=== PATIENT | male | born 1965 | race Hispanic/Latino ===

== ENCOUNTER 2018-05-07 12:51 | Inpatient (IN) | payer OTHER ==
[2018-05-07 13:00] VITALS: BMI 21.1
--- NOTE | 2018-05-07 13:44 | ED PDOC ---
Arrival/HPI - General Historian: Patient - History of Present Illness Time/Duration: < week Symptom Onset: Sudden Symptom Course: Unchanged Quality: Other Severity Level: Mild <Bernard Bautista - Last Filed: 05/07/18 19:48> <Kishor Nunez - Last Filed: 05/08/18 14:55> - General Chief Complaint: Medical Clearance Time Seen by Provider: 05/07/18 13:18 - History of Present Illness Narrative History of Present Illness (Text): Patient is a 52 year old male with PMH of HTN and depression presenting to the ED with abusive behavior and s/p fall. Patient was sent from [facility] for abusive and violent behavior. Patient also fell 3 times in the past 3 days where he hurt his right hand and both knees. He admits to falling from his bed to the floor. He denies hitting his head or losing consciousness. Patient states that he got an xray for his right hand and it was normal. He denies fevers, chills, headaches, dizziness, shortness of breath, chest pain, abdominal pain, or urinary symptoms. He denies suicidal or homicidal ideation. PMD: Dr. Mccoy (Bernard Bautista) Past Medical History - Provider Review Nursing Documentation Reviewed: Yes - Travel History Have you recently traveled outside [place] w/in the past 3 mons?: No - Infectious Disease Hx of Infectious Diseases: MRSA - Cardiac Hx Hypertension: Yes - Pulmonary Hx Chronic Obstructive Pulmonary Disease (COPD): Yes - Neurological Hx Seizures: Yes - HEENT Hx HEENT Disorder: Yes Other/Comment: hearing loss - Renal Hx Renal Disorder: No - Endocrine/Metabolic Hx Endocrine Disorders: No - Hematological/Oncological Hx Blood Disorders: No - Integumentary Hx Dermatological Disorder: No - Musculoskeletal/Rheumatological Hx Back Pain: Yes Hx Falls: Yes Other/Comment: scoliosis,, RIGHT WRIST CLOSED FRACTURE - Gastrointestinal Other/Comment: GI BLEEDING - Genitourinary/Gynecological Hx Sexually Transmitted Diseases: No - Psychiatric Hx Depression: Yes Hx Substance Use: No - Surgical History Hx Vascular Access Device: Yes (PICC LINE RIGHT UPPER ARM) Other/Comment: Endoscopy 06/04/16. - Anesthesia Hx Anesthesia: Yes Hx Anesthesia Reactions: No - Suicidal Assessment Feels Threatened In Home Enviroment: No <Bernard Bautista - Last Filed: 05/07/18 19:48> Family/Social History - Physician Review Nursing Documentation Reviewed: Yes Family/Social History: No Known Family HX Smoking Status: Never Smoked Hx Alcohol Use: No Hx Substance Use: No <Bernard Bautista - Last Filed: 05/07/18 19:48> Allergies/Home Meds <Bernard Bautista - Last Filed: 05/07/18 19:48> <MayraKishor - Last Filed: 05/08/18 14:55> Allergies/Adverse Reactions: Allergies No Known Allergies Allergy (Verified 05/07/18 13:15) Home Medications: Home Meds Medication Instructions Recorded Confirmed ARIPiprazole [Abilify] 5 mg PO 05/07/18 Albuterol/Ipratropium [Duoneb 3 05/07/18 mg/0.5 mg (3 ml) UD] Pantoprazole Sodium [Protonix] 40 mg PO 05/07/18 diltiaZEM [Diltiazem HCl] 30 mg PO 05/07/18 levETIRAcetam [Keppra] 05/07/18 Review of Systems - Physician Review All systems were reviewed & negative as marked: Yes - Review of Systems Systems not reviewed;Unavailable: Uncooperative <Bernard Bautista - Last Filed: 05/07/18 19:48> Physical Exam Vital Signs Reviewed: Yes Temperature: Afebrile Blood Pressure: Normal Pulse: Tachycardic Respiratory Rate: Normal Appearance: Positive for: Well-Appearing, Non-Toxic, Comfortable Pain Distress: None Mental Status: Positive for: Alert and Oriented X 3, Agitated - Systems Exam Head: Present: Atraumatic, Normocephalic Pupils: Present: PERRL Extroacular Muscles: Present: EOMI Conjunctiva: Present: Normal Mouth: Present: Moist Mucous Membranes Neck: Present: Normal Range of Motion Respiratory/Chest: Present: Clear to Auscultation, Good Air Exchange. No: Respiratory Distress, Accessory Muscle Use Cardiovascular: Present: Regular Rate and Rhythm, Normal S1, S2. No: Murmurs Abdomen: No: Tenderness, Distention, Peritoneal Signs Upper Extremity: Present: Other (Right hand covered in dressing, patient refused examination of his hand). No: Normal Inspection, Cyanosis, Edema Lower Extremity: Present: Other (Abrasions and scabs appreciated on bilateral knees). No: Normal Inspection, Edema, CALF TENDERNESS Neurological: Present: GCS=15, CN II-XII Intact, Speech Normal Skin: Present: Warm, Dry, Normal Color. No: Rashes Psychiatric: Present: Alert, Oriented x 3, Agitated, Other (Verbally abusive) <Bernard Bautista - Last Filed: 05/07/18 19:48> Vital Signs Temp Pulse Resp BP Pulse Ox 05/07/18 20:26 73 17 128/76 95 05/07/18 20:21 76 128/76 05/07/18 18:32 98.0 F 98 H 18 97 05/07/18 16:50 94 H 8 L 113/65 98 05/07/18 12:59 98.3 F 114 H 18 115/64 98 Medical Decision Making Reassessment Condition: Re-examined, Unchanged <Bernard Bautista - Last Filed: 05/07/18 19:48> <Kishor Nunez - Last Filed: 05/08/18 14:55> ED Course and Treatment: Impression: Patient is a 52 year old male presenting to the ED with fall and abusive behavior. Differential Diagnosis included but are not limited to: - Substance abuse - Psychosis Plan: -- CBC -- CMP -- EKG -- TSH -- T4 -- Alcohol level -- UDS -- Acetaminophen level -- Salicylate level -- Knee xray -- PES evaluation Progress Notes: 05/07/18 16:56 - Head CT: No acute findings 05/07/18 18:29 - Alcohol, salicylate, and acetaminophen levels: negative - UDS: positive for benzodiazepines - Hg/Hct: 7.7/23.4 - Patient will be admitted. Patient is stable. (Bernard Bautista) 05/07/18 14:26 52 year old male presents to the Emergency Department for evaluation of aggressive behavior and s/p fall. In agreement with resident note, which includes further HPI details. Patient was seen and evaluated with resident, came up with plan and treatment together. (Kishor Nunez) - Lab Interpretations Lab Results: 05/07/18 16:30 05/07/18 16:30 Lab Results 05/07/18 17:13: Urine Opiates Screen Negative, Urine Methadone Screen Negative, Ur Barbiturates Screen Negative, Ur Phencyclidine Scrn Negative, Ur Amphetamines Screen Negative, U Benzodiazepines Scrn Positive H, U Oth Cocaine Metabols Negative, U Cannabinoids Screen Negative 05/07/18 16:30: Salicylates < 1 L, Acetaminophen < 10.0 L 05/07/18 16:30: Sodium 133, Potassium 4.4, Chloride 103, Carbon Dioxide 22, Anion Gap 13, BUN 12, Creatinine 0.9, Est GFR ( Amer) > 60, Est GFR (Non- Af Amer) > 60, Random Glucose 106, Calcium 8.4, Total Bilirubin 0.3, AST 34, ALT 31, Alkaline Phosphatase 86, Total Protein 6.0, Albumin 3.1, Globulin 3.0, Albumin/Globulin Ratio 1.0 L 05/07/18 16:30: WBC 4.4 L, RBC 2.65 L, Hgb 7.7 L, Hct 23.4 L, MCV 88.3, MCH 29.1 , MCHC 32.9, RDW 18.5 H, Plt Count 142, MPV 9.6, Gran % 57.2, Lymph % (Auto) 32.9, Gordon % (Auto) 5.2, Eos % (Auto) 4.5, Baso % (Auto) 0.2, Gran # 2.52, Lymph # (Auto) 1.5, Gordon # (Auto) 0.2, Eos # (Auto) 0.2, Baso # (Auto) 0.01 05/07/18 16:30: Free T4 1.07, TSH 3rd Generation 4.27, Alcohol, Quantitative < 10 - RAD Interpretation Radiology Orders: 05/07/18 13:33 KNEES BILATERAL [RAD] Stat 05/07/18 15:00 HEAD W/O CONTRAST [CT] Stat - Medication Orders Current Medication Orders: Aripiprazole (Abilify) 5 mg PO HS CHANDRAKANT Last Admin: 05/07/18 22:09 Dose: 5 mg Behavioural Document 05/07/18 22:09 NIDA (Rec: 05/07/18 22:09 NIDA [id number]) Maintenance Maintenance Dose Yes Nonmedicinal Nonmedicinal Interventions Redirect Behavior Behavior for Medication: Continuous pacing/restlessness Re-Assess: Reassess Psych Meds Document 05/07/18 23:09 NIDA (Rec: 05/07/18 23:29 [facility] Reassess Psych Med Effective Diltiazem HCl (Cardizem) 30 mg PO Q6 [facility] Last Admin: 05/08/18 12:03 Dose: Not Given Non-Admin Reason: Patient Refused Levetiracetam (Keppra 500mg Ivpb) 500 mg in 100 mls @ 460 mls/hr IV Q12 CHANDRAKANT Last Admin: 05/08/18 09:56 Dose: 460 mls/hr eMAR Start Stop Document 05/08/18 09:56 [facility] (Rec: 05/08/18 09:57 [id number]) Intravenous Solution Start Date 05/08/18 Start Time 09:57 End Date 05/08/18 End time 10:30 Total Infusion Time 33 Lorazepam (Ativan) 1 mg IVP Q6 PRN; Protocol PRN Reason: Agitation Last Admin: 05/07/18 22:12 Dose: 1 mg IVP Administration Document 05/07/18 22:12 [facility] (Rec: 05/07/18 22:12 [facility]) Charges for Administration # of IVP Administrations 1 Behavioural Document 05/07/18 22:12 [facility] (Rec: 05/07/18 22:12 [facility]) Maintenance Maintenance Dose Yes Nonmedicinal Nonmedicinal Interventions Redirect Behavior Behavior for Medication: Continuous pacing/restlessness Re-Assess: Reassess Psych Meds Document 05/07/18 22:42 [facility] (Rec: 05/07/18 23:29 [facility]) Reassess Psych Med Effective Pantoprazole Sodium (Protonix Inj) 40 mg IVP Q12 [facility] Last Admin: 05/08/18 09:57 Dose: 40 mg IVP Administration Document 05/08/18 09:57 [facility] (Rec: 05/08/18 09:57 [facility]) Charges for Administration # of IVP Administrations 1 Discontinued Medications Albuterol/Ipratropium (Duoneb 3 Mg/0.5 Mg (3 Ml) Ud) 3 ml IH [id number] CHANDRAKANT Stop: 05/08/18 03:31 Last Admin: 05/08/18 03:34 Dose: 3 ml Levetiracetam 500 mg/ Sodium (Chloride) 105 mls @ 460 mls/hr IV Q12 CHANDRAKANT <Bernard Bautista - Last Filed: 05/07/18 19:48> - PA / MICA LAYER / Resident Statement MD/DO has reviewed & agrees with the documentation as recorded. MD/DO has examined the patient and agrees with the treatment plan. - Scribe Statement The provider has reviewed the documentation as recorded by the Scribe <Kishor Nunez - Last Filed: 05/08/18 14:55> - Scribe Statement Cole Zapien. All medical record entries made by the Scribe were at my direction and personally dictated by me. I have reviewed the chart and agree that the record accurately reflects my personal performance of the history, physical exam, medical decision making, and the department course for this patient. I have also personally directed, reviewed, and agree with the discharge instructions and disposition. (Kishor Nunez) Disposition/Present on Arrival - Present on Arrival Any Indicators Present on Arrival: No History of DVT/PE: No History of Uncontrolled Diabetes: No Urinary Catheter: No History of Decub. Ulcer: No History Surgical Site Infection Following: None - Disposition Have Diagnosis and Disposition been Completed?: Yes Disposition Time: 19:48 Patient Plan: Admission, Observation <Bernard Bautista - Last Filed: 05/07/18 19:48> <Kishor Nunez - Last Filed: 05/08/18 14:55> - Disposition Diagnosis: Aggressive behavior, Fall, Anemia Disposition: HOSPITALIZED Patient Problems: Current Active Problems Problem Status Onset Aggressive behavior Acute Anemia Acute Fall Acute Condition: FAIR
--- NOTE | 2018-05-07 15:31 | CT ---
Date of service: 05/07/2018 PROCEDURE: CT HEAD WITHOUT CONTRAST. HISTORY: headache COMPARISON: None available. TECHNIQUE: Axial computed tomography images were obtained through the head/brain without intravenous contrast. Radiation dose: Total exam DLP = 978 mGy-cm. This CT exam was performed using one or more of the following dose reduction techniques: Automated exposure control, adjustment of the mA and/or kV according to patient size, and/or use of iterative reconstruction technique. FINDINGS: HEMORRHAGE: No intracranial hemorrhage. BRAIN: No mass effect or edema. Mild atrophy. Mild chronic microvascular changes. No acute findings VENTRICLES: Unremarkable. No hydrocephalus. CALVARIUM: Unremarkable. PARANASAL SINUSES: Unremarkable as visualized. No significant inflammatory changes. MASTOID AIR CELLS: Unremarkable as visualized. No inflammatory changes. OTHER FINDINGS: None. IMPRESSION: No acute findings
[2018-05-07 16:41] LABS: BASO # 0.01 K/mm3 (0.0-2.0); BASO % 0.2 % (0.0-3.0); EOS # 0.2 (0.0-0.7); EOS % 4.5 % (1.5-5.0); GRAN # 2.52 (1.4-6.5); GRAN % 57.2 % (50.0-68.0); HEMOGLOBIN 7.7 g/dL (14.0-18.0); LYMPH # 1.5 (1.2-3.4); LYMPH % 32.9 % (22.0-35.0); MEAN CELL VOLUME 88.3 fl (80.0-105.0); MEAN CORPUSCULAR HEMOGLOBIN 29.1 pg (25.0-35.0); MEAN CORPUSCULAR HGB CONC 32.9 g/dl (31.0-37.0); MEAN PLATELET VOLUME 9.6 fl (7.0-11.0); MONO # 0.2 (0.1-0.6); MONO % 5.2 % (1.0-6.0); RBC 2.65 10^6/uL (3.5-6.1); RED CELL DISTRIBUTION WIDTH 18.5 % (11.5-14.5); WHITE BLOOD COUNT 4.4 10^3/ul (4.5-11.0)
[2018-05-07 16:57] LABS: ALBUMIN 3.1 g/dL (3.0-4.8); BLOOD UREA NITROGEN 12 mg/dL (7-21); CALCIUM 8.4 mg/dL (8.4-10.5); GFR NON-AFRICAN AMERICAN > 60
[2018-05-07 17:11] LABS: ACETAMINOPHEN < 10.0 ug/ml (10.0-20.0); SALICYLATE < 1 mg/dL (2.0-20.0)
[2018-05-07 17:13] LABS: ALT/SGPT 31 U/L (7-56); AST/SGOT 34 U/L (17-59); FREE T4 1.07 ng/dL (0.78-2.19)
[2018-05-07 17:40] LABS: BARBITURATES, UR NEGATIVE (NEGATIVE); BENZODIAZEPINES, UR POSITIVE (NEGATIVE); OPIATES, UR NEGATIVE (NEGATIVE); PHENCYCLIDINE, UR NEGATIVE (NEGATIVE)
--- NOTE | 2018-05-07 19:15 | CP.PCM.HP ---
<Warren Akbar - Last Filed: 05/07/18 21:30> History of Present Illness - History of Present Illness History of Present Illness: Warren Akbar, PGY1 History and Physical for Dr. Simeon cc: Violent behavior and s/p fall Patient is a 52 y/o M with PMHx of HTN, COPD, hiatal hernia, PUD, Alcohol abuse , Seizures, Depression who presented to the ED on 05/07 from residential ( [facility]) for violent behavior and s/p fall. In the ED, patient was placed in the PES unit. As per ED note, patient has feel 3 times within the past 3 days and has injuries of his right hand and bilateral knees. Patient denied hitting his head on the floor or experiencing any LOC. In the ED, patient 's CT Head was negative for acute intracranial hemorrhage. Patient was also noted to be agitated and aggressive. Initial lab work in the ED showed Hgb 7.7, which is a drop from his prior Hgb from past admission, of Hgb 10.2. Utox was positive for benzodiazepines. Vital signs: Temp 98, HR 114, BP 115/64, RR 18, and SaO2 98% on room air. Patient was later examined by the hospitalist team. During interview, patient was not answering questions appropriately. However, he denied fever, chills, headaches, dizziness, shortness of breath, nausea, vomiting, diarrhea. Patient was noted to be agitated during exam. From prior charting, patient was admitted on 04/03/18 s/p cardiac arrest and had treatment for seizures 2/2 alcohol withdrawal. Psych was also consulted at that time for agitation. A full 12 point ROS was conducted and unremarkable except as stated above. PMD: Liliana Burdick PMHx: HTN, COPD, hiatal hernia, PUD, Alcohol abuse, Seizures, Depression PSHx: small intestinal excision SHx: Meds: Keppra, Diltiazem 30 mg PO, Cardizem 30 mg PO q6, Sucralfate 1 g PO QID, Protonix 4- mg PO q12, Multivitamin daily, Ativan q6 prn, Duonebs, Abilify 5 mg PO HS Allergies: NKDA SocialHx: Two 24 oz. beers daily for the past 30 years, 10 cigarettes a day for 30 years, no recreational drug use FamHx: non-contributory Present on Admission - Present on Admission Any Indicators Present on Admission: Yes History of DVT/PE: No History of Uncontrolled Diabetes: No Review of Systems - Review of Systems All systems: reviewed and no additional remarkable complaints except (as per HPI.) Past Patient History - Infectious Disease Hx of Infectious Diseases: MRSA - Past Medical History & Family History Past Medical History?: Yes - Past Social History Smoking Status: Never Smoked - CARDIAC Hx Hypertension: Yes - PULMONARY Hx Chronic Obstructive Pulmonary Disease (COPD): Yes - NEUROLOGICAL Hx Seizures: Yes - HEENT Hx HEENT Problems: Yes Other/Comment: hearing loss - RENAL Hx Chronic Kidney Disease: No - ENDOCRINE/METABOLIC Hx Endocrine Disorders: No - HEMATOLOGICAL/ONCOLOGICAL Hx Blood Disorders: No - INTEGUMENTARY Hx Dermatological Problems: No - MUSCULOSKELETAL/RHEUMATOLOGICAL Hx Back Pain: Yes Hx Falls: Yes Other/Comment: scoliosis,, RIGHT WRIST CLOSED FRACTURE - GASTROINTESTINAL Other/Comment: GI BLEEDING - GENITOURINARY/GYNECOLOGICAL Hx Sexually Transmitted Disorders: No - PSYCHIATRIC Hx Depression: Yes Hx Substance Use: No - SURGICAL HISTORY Hx Vascular Access Device: Yes (PICC LINE RIGHT UPPER ARM) Other/Comment: Endoscopy 06/04/16. - ANESTHESIA Hx Anesthesia: Yes Hx Anesthesia Reactions: No Meds Allergies/Adverse Reactions: Allergies Allergy/AdvReac Type Severity Reaction Status Date / Time No Known Allergies Allergy Verified 05/07/18 13:15 Physical Exam - Constitutional Appears: Agitated - Head Exam Head Exam: ATRAUMATIC, NORMAL INSPECTION, NORMOCEPHALIC - Eye Exam Pupil Exam: PERRL - ENT Exam ENT Exam: Mucous Membranes Moist - Neck Exam Neck exam: Positive for: Normal Inspection - Respiratory Exam Respiratory Exam: Clear to Auscultation Bilateral, NORMAL BREATHING PATTERN. absent: Chest Wall Tenderness, Rales, Rhonchi, Wheezes - Cardiovascular Exam Cardiovascular Exam: REGULAR RHYTHM, +S1, +S2 - GI/Abdominal Exam GI & Abdominal Exam: Normal Bowel Sounds, Soft. absent: Tenderness - Extremities Exam Extremities exam: Positive for: full ROM, pedal pulses present Additional comments: R hand covered with dressing. Multiple abrasions noted on the bilateral knees. - Neurological Exam Neurological exam: Alert Additional comments: Patient is shouting profanity during interview - Skin Skin Exam: Dry, Intact, Normal Color, Warm Results - Vital Signs Recent Vital Signs: Last Vital Signs Temp 98.0 F 05/07/18 18:32 Pulse 98 H 05/07/18 18:32 Resp 18 05/07/18 18:32 BP 113/65 05/07/18 16:50 Pulse Ox 97 05/07/18 18:32 - Labs Result Diagrams: 05/07/18 16:30 05/07/18 16:30 Assessment & Plan - Assessment and Plan (Free Text) Assessment: Patient is a 52 y/o M with PMHx of HTN, COPD, hiatal hernia, PUD, Alcohol abuse , Seizures, Depression who presented to the ED on 05/07 from residential ( [facility]) for violent behavior and s/p fall. Patient is anemic with a hemoglobin lower than his baseline from prior hospital admission. He is also aggressive during his admission. Due to previous history of cardiac arrest and falls, patient will be admitted to the floor. Plan: Recurrent Falls - CT Head (05/07): no acute intracranial hemorrhage. - Fall precautions - 1:1 precautions Agitation - Ativan 1 mg IVP prn - 1:1 precautions - Psych consulted, f/u recs - f/u EtOH level Anemia - Hgb is 7.7 (baseline was 10.2 on prior discharge) - repeat cbc in the morning - Transfuse x1 pRBC - Patient is not actively bleeding - GI consulted Seizures - Keppra 500 mg q 12 - Monitor for seizures - Consider seizure precautions as patient has had prior admission for seizures COPD - duonebs q4h - No wheezing on lung exam PPx: GI ppx: Protonix 40 mg IVP q12 DVT ppx: SCDs Diet: Clear liquids; keep NPO after midnight except meds Dispo: Patient will be monitored on the floor. Case was reviewed and discussed with Attending Physician Dr. Simeon. <Max Simeon - Last Filed: 05/10/18 16:24> Results - Vital Signs Recent Vital Signs: Last Vital Signs Temp 98.3 F 05/10/18 08:55 Pulse 108 H 05/10/18 12:15 Resp 20 05/10/18 08:55 BP 146/96 H 05/10/18 12:15 Pulse Ox 99 05/10/18 08:55 - Labs Result Diagrams: 05/10/18 07:30 05/10/18 07:30 Labs: Laboratory Results - last 24 hr 05/09/18 05/10/18 05/10/18 10:00 07:30 07:30 WBC 3.9 L RBC 3.43 L Hgb 10.1 L Hct 29.9 L MCV 87.2 MCH 29.4 MCHC 33.8 RDW 17.4 H Plt Count 252 MPV 8.8 Sodium 134 Potassium 3.9 Chloride 99 Carbon Dioxide 27 Anion Gap 12 BUN 16 Creatinine 0.8 Est GFR ( Amer) > 60 Est GFR (Non-Af Amer) > 60 Random Glucose 97 Calcium 8.8 Phosphorus 4.9 H Magnesium 1.3 L Ferritin 267.0 Total Bilirubin 0.4 AST 33 ALT 21 Alkaline Phosphatase 101 Lactate Dehydrogenase Total Creatine Kinase Troponin I Total Protein 6.3 Albumin 3.1 Globulin 3.2 Albumin/Globulin Ratio 1.0 L Vitamin B12 609 Folate > 20.0 05/10/18 12:50 WBC RBC Hgb Hct MCV MCH MCHC RDW Plt Count MPV Sodium Potassium Chloride Carbon Dioxide Anion Gap BUN Creatinine Est GFR ( Amer) Est GFR (Non-Af Amer) Random Glucose Calcium Phosphorus Magnesium Ferritin Total Bilirubin AST ALT Alkaline Phosphatase Lactate Dehydrogenase 479 Total Creatine Kinase 21 L Troponin I 0.01 Total Protein Albumin Globulin Albumin/Globulin Ratio Vitamin B12 Folate Attending/Attestation - Attestation I have personally seen and examined this patient.: Yes I have fully participated in the care of the patient.: Yes I have reviewed all pertinent clinical information: Yes Notes (Text): 05/10/18 16:22 Medical record note made by the resident after discussion with my direction and input after the patient was personally seen and examined by me. I have reviewed the chart and agree that the record accurately reflects by personal performance of the history, physical exam, data review, and medical decision-making, in the course for the patient. I have also personally directed the plan of care. 52 year old male with PMH of ETOH abuse with withdrawal seizures, SP Cardiac arrest 04/03, PUD, SP bilroth, COPD, recent upper GI bleeding s/p EGD with treatment of bleeding anastomotic ulcer last month at [facility] (EGD last month showed anastomotic ulceration with visible vessel s/p clip placement )who presents from nursing facility with fall and agitation. Hemoglobin is 7.2, There is rojas ctive bleeding.We will transfuse one unit of PRBC. We will monitor hemoglobin and will get GI consult. We will also get Psychiatry consult.
--- NOTE | 2018-05-07 20:16 | CARD ---
APPROVED REPORT Date of service: 05/07/2018 EKG Measurement Heart [id number] <Conclusion> Sinus tachycardia Possible Left atrial enlargement Borderline ECG
[2018-05-07] MEDS: Albuterol-Ipratrop 3 mg / 0.5 (3 ml) UD IH SCH ×2 (20:21→23:41)
[2018-05-07] MEDS ORDERED: levETIRAcetam 500 MG in Sodium Chloride 0.9% 100 ML IV SCH (22:00)
[2018-05-07] MEDS: levETIRAcetam 500mg IVPB 500 MG/100 ML BAG IV SCH (22:09)
[2018-05-08] MEDS: Albuterol-Ipratrop 3 mg / 0.5 (3 ml) UD IH SCH ×2 (03:34→20:55)
--- NOTE | 2018-05-08 08:27 | CP.PCM.CON ---
<Lan Canales - Last Filed: 05/08/18 10:43> History of Present Illness - History of Present Illness History of Present Illness: GI Fellow PGY4, consult note. Patient is an agitated and belligerent 52M presenting for violent behavior and fall. He denies LOC. He denies bleeding from rectum or hematemesis. Patient has Hb 7.7, last Hb 10 two weeks ago. He has history of PUD. s/p billroth II and recently ulcer found with vessel and s/p clip 04/04. PMHx - PUD, COPD, alcohol abuse, w/d seizures PSHx - as above. FMHx - unremarkable SocHx - Alcohol abuse. Lives in shelter. Violent behavior. 12pt ROS neg except for above. Past Patient History - Infectious Disease Hx of Infectious Diseases: MRSA - Past Medical History & Family History Past Medical History?: Yes - Past Social History Smoking Status: Never Smoked - CARDIAC Hx Hypertension: Yes - PULMONARY Hx Chronic Obstructive Pulmonary Disease (COPD): Yes - NEUROLOGICAL Hx Seizures: Yes - HEENT Hx HEENT Problems: Yes Other/Comment: hearing loss - RENAL Hx Chronic Kidney Disease: No - ENDOCRINE/METABOLIC Hx Endocrine Disorders: No - HEMATOLOGICAL/ONCOLOGICAL Hx Blood Disorders: No - INTEGUMENTARY Hx Dermatological Problems: No - MUSCULOSKELETAL/RHEUMATOLOGICAL Hx Back Pain: Yes Hx Falls: Yes Other/Comment: scoliosis,, RIGHT WRIST CLOSED FRACTURE - GASTROINTESTINAL Other/Comment: GI BLEEDING - GENITOURINARY/GYNECOLOGICAL Hx Sexually Transmitted Disorders: No - PSYCHIATRIC Hx Depression: Yes - SURGICAL HISTORY Other/Comment: Endoscopy 06/04/16. - ANESTHESIA Hx Anesthesia: Yes Hx Anesthesia Reactions: No Meds Allergies/Adverse Reactions: Allergies Allergy/AdvReac Type Severity Reaction Status Date / Time No Known Allergies Allergy Verified 05/07/18 13:15 - Medications Medications: Current Medications Aripiprazole (Abilify) 5 mg PO HS [facility] Last Admin: 05/07/18 22:09 Dose: 5 mg Diltiazem HCl (Cardizem) 30 mg PO Q6 [facility] Last Admin: 05/08/18 05:40 Dose: 30 mg Levetiracetam (Keppra 500mg Ivpb) 500 mg in 100 mls @ 460 mls/hr IV Q12 [facility] Last Admin: 05/07/18 22:09 Dose: 460 mls/hr Lorazepam (Ativan) 1 mg IVP Q6 PRN; Protocol PRN Reason: Agitation Last Admin: 05/07/18 22:12 Dose: 1 mg Pantoprazole Sodium (Protonix Inj) 40 mg IVP Q12 [facility] Last Admin: 05/07/18 22:09 Dose: 40 mg Physical Exam - Constitutional Appears: Non-toxic, No Acute Distress, Cachectic, Chronically Ill - Head Exam Head Exam: NORMAL INSPECTION - Eye Exam Eye Exam: EOMI, Normal appearance - ENT Exam ENT Exam: Mucous Membranes Moist - Respiratory Exam Respiratory Exam: Clear to Auscultation Bilateral, NORMAL BREATHING PATTERN - Cardiovascular Exam Cardiovascular Exam: REGULAR RHYTHM, +S1, +S2 - GI/Abdominal Exam GI & Abdominal Exam: Normal Bowel Sounds, Soft. absent: Tenderness - Rectal Exam Rectal Exam: NORMAL INSPECTION. absent: Black Stool, Bloody Stool - Extremities Exam Extremities exam: Positive for: normal inspection - Neurological Exam Neurological exam: Alert, CN II-XII Intact - Psychiatric Exam Psychiatric exam: Agitated - Skin Skin Exam: Dry, Normal Color Results - Vital Signs Recent Vital Signs: Last Vital Signs Temp 98.3 F 05/08/18 06:00 Pulse 86 05/08/18 06:00 Resp 20 05/08/18 06:00 BP 133/89 05/08/18 06:00 Pulse Ox 98 05/08/18 06:00 - Labs Result Diagrams: 05/07/18 16:30 05/07/18 16:30 Labs: Laboratory Results - last 24 hr 05/07/18 19:38 Blood Type A POSITIVE Antibody Screen Negative Crossmatch See Detail BBK History Checked Patient has bt Assessment & Plan - Assessment and Plan (Free Text) Assessment: #Acute on chronic anemia #Alcohol abuse #PUD #COPD #HTN #Malnourished, moderate PLAN: -Anemia is likely multifactorial i.e. alcohol, malnourished. Recommend workup for other sources (hematology, urine, deficiencies) -s/p 1u pRBCs -No signs of major GI bleeding. Continue to monitor stool. -Recommend continuing PPI therapy -Monitor Hb, transfuse for Hb less than 7. (currently refusing blood draws) -He can start regular diet -Avoid alcohol - Date & Time Date: 05/08/18 Time: 08:38 <Thomas Jansen - Last Filed: 05/08/18 12:06> Meds - Medications Medications: Current Medications Aripiprazole (Abilify) 5 mg PO HS [facility] Last Admin: 05/07/18 22:09 Dose: 5 mg Diltiazem HCl (Cardizem) 30 mg PO Q6 [facility] Last Admin: 05/08/18 05:40 Dose: 30 mg Levetiracetam (Keppra 500mg Ivpb) 500 mg in 100 mls @ 460 mls/hr IV Q12 [facility] Last Admin: 05/08/18 09:56 Dose: 460 mls/hr Lorazepam (Ativan) 1 mg IVP Q6 PRN; Protocol PRN Reason: Agitation Last Admin: 05/07/18 22:12 Dose: 1 mg Pantoprazole Sodium (Protonix Inj) 40 mg IVP Q12 [facility] Last Admin: 05/08/18 09:57 Dose: 40 mg Results - Vital Signs Recent Vital Signs: Last Vital Signs Temp 98.3 F 05/08/18 06:00 Pulse 86 05/08/18 06:00 Resp 20 05/08/18 06:00 BP 133/89 05/08/18 06:00 Pulse Ox 98 05/08/18 06:00 - Labs Result Diagrams: 05/08/18 11:40 05/07/18 16:30 Labs: Laboratory Results - last 24 hr 05/07/18 05/08/18 05/08/18 19:38 11:40 11:40 WBC 3.8 L RBC 3.27 L Hgb 9.5 L Hct 28.4 L MCV 86.9 MCH 29.1 MCHC 33.5 RDW 17.6 H Plt Count 178 MPV 9.0 Gran % 51.8 Lymph % (Auto) 35.9 H [place] % (Auto) 8.1 H Eos % (Auto) 4.2 Baso % (Auto) 0.0 Gran # 1.99 Lymph # (Auto) 1.4 [place] # (Auto) 0.3 Eos # (Auto) 0.2 Baso # (Auto) 0.00 Retic Count 2.10 H Iron 63 Blood Type A POSITIVE Antibody Screen Negative Crossmatch See Detail BBK History Checked Patient has bt Attending/Attestation - Attestation I have personally seen and examined this patient.: Yes I have fully participated in the care of the patient.: Yes I have reviewed all pertinent clinical information: Yes Notes (Text): 05/08/18 12:01 I have seen and examined patient with GI fellow. Agree with above documentation with the following additions. In brief, this is a 52 year old male with history of ETOH abuse with withdrawal seizures, PUD s/p bilroth, COPD , recent upper GI bleeding s/p EGD with treatment of bleeding anastomotic ulcer last month at [facility] who presents from nursing facility with fall. He has been exhibiting violent behavior and is currently undergoing neurological evaluation. He is not able to fully participate in meaningful conversation, additional history obtained via chart review, discussion with nursing staff and patient's mother. He denies abdominal pain, vomiting, melena, fever/chills, weight loss. Unclear regarding timing of last ETOH consumption. Additional physical exam: Abdomen: no palpable hepato/splenomegaly ETOH abuse PUD s/p bilroth COPD Altered mental status, s/p fall at nursing facility Anemia, recent EGD last month showed anastomotic ulceration with visible vessel s/p clip placement Rectal exam performed today shows soft yellow stool without palpable lesions - Diet as tolerated - Continue to monitor H/H, s/p PRBC transfusion - Continue with PPI therapy - Follow up neurology recommendations regarding potential seizure activity - Will continue to monitor patient clinical course
[2018-05-08] MEDS: levETIRAcetam 500mg IVPB 500 MG/100 ML BAG IV SCH ×2 (09:56→22:03)
[2018-05-08 11:52] LABS: EOS # 0.2 (0.0-0.7); EOS % 4.2 % (1.5-5.0); GRAN # 1.99 (1.4-6.5); GRAN % 51.8 % (50.0-68.0); HEMOGLOBIN 9.5 g/dL (14.0-18.0); LYMPH # 1.4 (1.2-3.4); LYMPH % 35.9 % (22.0-35.0); MEAN CELL VOLUME 86.9 fl (80.0-105.0); MEAN CORPUSCULAR HEMOGLOBIN 29.1 pg (25.0-35.0); MEAN CORPUSCULAR HGB CONC 33.5 g/dl (31.0-37.0); MONO # 0.3 (0.1-0.6); MONO % 8.1 % (1.0-6.0); RBC 3.27 10^6/uL (3.5-6.1); RED CELL DISTRIBUTION WIDTH 17.6 % (11.5-14.5); WHITE BLOOD COUNT 3.8 10^3/ul (4.5-11.0)
[2018-05-08 12:00] LABS: IRON 63 ug/dL (45-180)
[2018-05-08 12:10] LABS: % IRON SATURATION 28 % (20-55); TOTAL IRON BINDING CAPACITY 222 ug/dL (261-462)
--- NOTE | 2018-05-08 13:12 | CP.PCM.PN ---
<Temo Campbell - Last Filed: 05/08/18 13:09> Subjective - Date & Time of Evaluation Date of Evaluation: 05/08/18 Time of Evaluation: 07:36 - Subjective Subjective: Patient seen and examined at bedside. Still anxious and impulsive and mildly agitated. He reported no complaints. Patient denied CP, SOB, fever, palpitations or change of bowel movement. Objective - Vital Signs/Intake and Output Vital Signs (last 24 hours): Temp Pulse Resp BP Pulse Ox 98.3 F 86 20 133/89 98 05/08/18 06:00 05/08/18 06:00 05/08/18 06:00 05/08/18 06:00 05/08/18 06:00 Intake and Output: 05/08/18 05/08/18 06:59 18:59 Intake Total 1200 Balance 1200 - Medications Medications: Current Medications Aripiprazole (Abilify) 5 mg PO HS [facility] Last Admin: 05/07/18 22:09 Dose: 5 mg Diltiazem HCl (Cardizem) 30 mg PO Q6 [facility] Last Admin: 05/08/18 12:03 Dose: Not Given Levetiracetam (Keppra 500mg Ivpb) 500 mg in 100 mls @ 460 mls/hr IV Q12 [facility] Last Admin: 05/08/18 09:56 Dose: 460 mls/hr Lorazepam (Ativan) 1 mg IVP Q6 PRN; Protocol PRN Reason: Agitation Last Admin: 05/07/18 22:12 Dose: 1 mg Pantoprazole Sodium (Protonix Inj) 40 mg IVP Q12 [facility] Last Admin: 05/08/18 09:57 Dose: 40 mg - Labs Labs: 05/08/18 11:40 - Constitutional Appears: Agitated, Confused - Head Exam Head Exam: ATRAUMATIC, NORMOCEPHALIC - Eye Exam Eye Exam: EOMI, Normal appearance, PERRL Pupil Exam: NORMAL ACCOMODATION, PERRL - ENT Exam ENT Exam: Mucous Membranes Moist, Normal Exam - Neck Exam Neck Exam: Full ROM, Normal Inspection - Respiratory Exam Respiratory Exam: Clear to Ausculation Bilateral, NORMAL BREATHING PATTERN - Cardiovascular Exam Cardiovascular Exam: REGULAR RHYTHM, +S1, +S2. absent: Murmur - GI/Abdominal Exam GI & Abdominal Exam: Soft, Normal Bowel Sounds. absent: Tenderness - Extremities Exam Extremities Exam: Full ROM, Normal Capillary Refill, Normal Inspection. absent : Joint Swelling, Pedal Edema - Back Exam Back Exam: NORMAL INSPECTION - Neurological Exam Neurological Exam: Alert, Awake - Psychiatric Exam Psychiatric exam: Agitated, Anxious, Depressed - Skin Skin Exam: Abrasion (b/l knee), Dry, Rash Assessment and Plan - Assessment and Plan (Free Text) Assessment: 52 y/o M with PMHx of HTN, COPD, hiatal hernia, PUD, Alcohol abuse, Seizures, Depression who presented to the ED from shelter for violent behavior and s/ p fall. CT head is negative. Patient Hb 7.7, last Hb 10 two weeks ago. Due to previous history of cardiac arrest and falls, patient was admitted for acute anemia and agitation. Plan: Anemia - Hgb is 7.7 baseline was 10.2 two weeks ago - Transfuse x1 pRBC, refused second unit transfusion - patient refused blood draw this morning - Patient is not actively bleeding. rectal exam done by GI did not show blood - As pe GI note: monitor H/H, s/p PRBC transfusion, PPI therapy - Iron studies, vit B12, folate level ordered Recurrent Falls - CT Head: no acute intracranial hemorrhage. - Fall precautions - 1:1 precautions Agitation - Ativan 1 mg IVP prn - 1:1 precautions - Psych consulted, f/u recs Seizures - no seizure activity reported - continue Keppra 500 mg q 12 - Monitor for seizures - neurology consult - seizure precautions COPD - duonebs q4h - O2 NC prn Prophylaxis GI ppx: Protonix 40 mg IVP q12 DVT ppx: SCDs Diet: Clear liquid Case was reviewed and discussed with Attending Physician Dr. Simeon. <Max Simeon - Last Filed: 05/10/18 16:25> Objective - Vital Signs/Intake and Output Vital Signs (last 24 hours): Temp Pulse Resp BP Pulse Ox 98.3 F 108 H 20 146/96 H 99 05/10/18 08:55 05/10/18 12:15 05/10/18 08:55 05/10/18 12:15 05/10/18 08:55 - Medications Medications: Current Medications Albuterol/Ipratropium (Duoneb 3 Mg/0.5 Mg (3 Ml) Ud) 3 ml IH [id number] [facility] Last Admin: 05/10/18 13:45 Dose: 3 ml Albuterol/Ipratropium (Duoneb 3 Mg/0.5 Mg (3 Ml) Ud) 3 ml IH Q2H PRN PRN Reason: Shortness of Breath Diltiazem HCl (Cardizem) 30 mg PO Q6 [facility] Last Admin: 05/10/18 12:15 Dose: 30 mg Divalproex Sodium (Depakote Dr (*Bid*)) 250 mg PO BID [facility] PRN Reason: Protocol Last Admin: 05/10/18 12:20 Dose: 250 mg Levetiracetam (Keppra 500mg Ivpb) 500 mg in 100 mls @ 460 mls/hr IV Q12 [facility] Last Admin: 05/10/18 12:13 Dose: 460 mls/hr Lorazepam (Ativan) 1 mg IVP Q6 PRN; Protocol PRN Reason: Agitation Last Admin: 05/09/18 12:53 Dose: 1 mg Lorazepam (Ativan) 1 mg PO Q6H PRN; Protocol PRN Reason: anxiety/agitation Last Admin: 05/10/18 12:42 Dose: 1 mg Mirtazapine (Remeron) 15 mg PO HS [facility] Last Admin: 05/09/18 21:45 Dose: 15 mg Multivitamins/Minerals (Therapeutic-M Tab) 1 tab PO 0800 [facility] Last Admin: 05/10/18 08:56 Dose: 1 tab Pantoprazole Sodium (Protonix Inj) 40 mg IVP Q12 [facility] Last Admin: 05/10/18 12:14 Dose: 40 mg Risperidone (Risperdal Oral Soln) 1 mg PO BID [facility] PRN Reason: Protocol Last Admin: 05/10/18 14:03 Dose: 1 mg - Labs Labs: 05/10/18 07:30 05/10/18 07:30 Attending/Attestation - Attestation I have personally seen and examined this patient.: Yes I have fully participated in the care of the patient.: Yes I have reviewed all pertinent clinical information, including history, physical exam and plan: Yes Notes (Text): 05/10/18 16:25 Medical record note made by the resident after discussion with my direction and input after the patient was personally seen and examined by me. I have reviewed the chart and agree that the record accurately reflects by personal performance of the history, physical exam, data review, and medical decision-making, in the course for the patient. I have also personally directed the plan of care.
--- NOTE | 2018-05-08 14:57 | RAD ---
Date of service: 05/07/2018 PROCEDURE: Bilateral Knee Radiographs. HISTORY: s/p fall COMPARISON: None. FINDINGS: BONES: Right Knee: Normal. No fracture. Left Knee: Normal. No fracture. JOINTS: Right Knee: Normal. No osteoarthritis. Left knee: Normal. No osteoarthritis. SOFT TISSUES: Right Knee: Normal. Left Knee: Normal. JOINT EFFUSION: Right Knee: None. Left Knee: None. OTHER FINDINGS: None. IMPRESSION: Normal radiographs of the knees.
[2018-05-08] MEDS ORDERED: Albuterol-Ipratrop 3 mg / 0.5 (3 ml) UD IH STA (16:33)
[2018-05-08] MEDS ORDERED: Albuterol-Ipratrop 3 mg / 0.5 (3 ml) UD IH PRN (16:44)
[2018-05-08 16:58] LABS: ARTERIAL BLOOD GAS HCO3 27.6 mmol/L (21-28); ARTERIAL BLOOD GAS PCO2 37 mm/Hg (35-45); ARTERIAL BLOOD GAS PH 7.48 (7.35-7.45); ARTERIAL BLOOD GAS TCO2 28.7 mmol.L (22-28)
[2018-05-08] MEDS: Divalproex 125 mg EC Sprinkle Cap PO SCH (17:47)
[2018-05-09] MEDS: Albuterol-Ipratrop 3 mg / 0.5 (3 ml) UD IH SCH ×4 (02:28→19:12)
--- NOTE | 2018-05-09 07:32 | CP.PCM.PN ---
<Lan Canales - Last Filed: 05/09/18 10:23> Subjective - Date & Time of Evaluation Date of Evaluation: 05/09/18 Time of Evaluation: 07:29 - Subjective Subjective: GI Fellow PGY4, No acute overnight events. He had BM yesterday, but did not look at color. Tolerating diet. Objective - Vital Signs/Intake and Output Vital Signs (last 24 hours): Temp Pulse Resp BP Pulse Ox 97.9 F 99 H 18 134/78 99 05/08/18 18:02 05/09/18 06:00 05/08/18 18:02 05/09/18 05:50 05/08/18 18:02 - Medications Medications: Current Medications Albuterol/Ipratropium (Duoneb 3 Mg/0.5 Mg (3 Ml) Ud) 3 ml IH [id number] [facility] Last Admin: 05/09/18 02:28 Dose: Not Given Albuterol/Ipratropium (Duoneb 3 Mg/0.5 Mg (3 Ml) Ud) 3 ml IH Q2H PRN PRN Reason: Shortness of Breath Diltiazem HCl (Cardizem) 30 mg PO Q6 [facility] Last Admin: 05/09/18 05:50 Dose: 30 mg Divalproex Sodium (Depakote Sprinkles) 125 mg PO BID [facility] PRN Reason: Protocol Last Admin: 05/08/18 17:47 Dose: 125 mg Levetiracetam (Keppra 500mg Ivpb) 500 mg in 100 mls @ 460 mls/hr IV Q12 [facility] Last Admin: 05/08/18 22:03 Dose: 460 mls/hr Lorazepam (Ativan) 1 mg IVP Q6 PRN; Protocol PRN Reason: Agitation Last Admin: 05/08/18 15:41 Dose: 1 mg Lorazepam (Ativan) 1 mg PO Q6H PRN; Protocol PRN Reason: anxiety/agitation Last Admin: 05/09/18 01:27 Dose: 1 mg Pantoprazole Sodium (Protonix Inj) 40 mg IVP Q12 [facility] Last Admin: 05/08/18 22:04 Dose: 40 mg Risperidone (Risperdal Oral Soln) 0.5 mg PO BID [facility] PRN Reason: Protocol Last Admin: 05/08/18 17:59 Dose: 0.5 mg Risperidone (Risperdal Oral Soln) 0.5 mg PO HS [facility] PRN Reason: Protocol Last Admin: 05/08/18 22:05 Dose: 0.5 mg - Labs Labs: 05/08/18 11:40 - Constitutional Appears: Non-toxic, No Acute Distress, Cachectic, Chronically Ill - Head Exam Head Exam: NORMAL INSPECTION - Eye Exam Eye Exam: EOMI, Normal appearance - ENT Exam ENT Exam: Mucous Membranes Moist - Respiratory Exam Respiratory Exam: Clear to Ausculation Bilateral, NORMAL BREATHING PATTERN - Cardiovascular Exam Cardiovascular Exam: REGULAR RHYTHM, +S1, +S2 - GI/Abdominal Exam GI & Abdominal Exam: Soft, Normal Bowel Sounds. absent: Tenderness - Extremities Exam Extremities Exam: Normal Inspection - Neurological Exam Neurological Exam: Alert, Awake - Psychiatric Exam Psychiatric exam: Agitated, Normal Affect - Skin Skin Exam: Dry, Normal Color Assessment and Plan - Assessment and Plan (Free Text) Assessment: #Acute on chronic anemia #Alcohol abuse #PUD s/p EGD + clip 04/04. #COPD #HTN #Malnourished, moderate #Psychiatric disorder on multiple medications PLAN: -No evidence for major GI bleed. Good response to blood transfusion, negative KIKI, HDS. -Anemia is likely multifactorial i.e. alcohol, malnourished. Recommend workup for other sources (hematology, deficiencies) -s/p 1u pRBCs -Recommend continuing PPI therapy considering history of recent upper GI bleed -Monitor Hb, transfuse for Hb less than 7. -regular diet -Avoid alcohol -Supplemental protein -Recommend multivitamin -Will sign-off at this time. <Pradeep Bond - Last Filed: 05/09/18 13:26> Objective - Vital Signs/Intake and Output Vital Signs (last 24 hours): Temp Pulse Resp BP Pulse Ox 98 F 107 H 20 133/75 98 05/09/18 07:54 05/09/18 12:53 05/09/18 07:54 05/09/18 12:53 05/09/18 07:54 - Medications Medications: Current Medications Albuterol/Ipratropium (Duoneb 3 Mg/0.5 Mg (3 Ml) Ud) 3 ml IH [id number] [facility] Last Admin: 05/09/18 08:17 Dose: 3 ml Albuterol/Ipratropium (Duoneb 3 Mg/0.5 Mg (3 Ml) Ud) 3 ml IH Q2H PRN PRN Reason: Shortness of Breath Diltiazem HCl (Cardizem) 30 mg PO Q6 [facility] Last Admin: 05/09/18 12:53 Dose: 30 mg Divalproex Sodium (Depakote Dr (*Bid*)) 250 mg PO BID [facility] PRN Reason: Protocol Levetiracetam (Keppra 500mg Ivpb) 500 mg in 100 mls @ 460 mls/hr IV Q12 [facility] Last Admin: 05/09/18 09:36 Dose: 460 mls/hr Lorazepam (Ativan) 1 mg IVP Q6 PRN; Protocol PRN Reason: Agitation Last Admin: 05/09/18 12:53 Dose: 1 mg Lorazepam (Ativan) 1 mg PO Q6H PRN; Protocol PRN Reason: anxiety/agitation Last Admin: 05/09/18 09:32 Dose: 1 mg Mirtazapine (Remeron) 15 mg PO HS [facility] Multivitamins/Minerals (Therapeutic-M Tab) 1 tab PO 0800 [facility] Pantoprazole Sodium (Protonix Inj) 40 mg IVP Q12 [facility] Last Admin: 05/09/18 09:32 Dose: 40 mg Risperidone (Risperdal Oral Soln) 1 mg PO BID [facility] PRN Reason: Protocol - Labs Labs: 05/09/18 10:00 05/09/18 10:00 Attending/Attestation - Attestation I have personally seen and examined this patient.: Yes I have fully participated in the care of the patient.: Yes I have reviewed all pertinent clinical information, including history, physical exam and plan: Yes Notes (Text): 05/09/18 13:24 I have seen and examined patient with GI fellow. In brief, this is a 52 year old male with history of ETOH abuse with withdrawal seizures, PUD s/p bilroth, COPD, recent upper GI bleeding s/p EGD with treatment of bleeding anastomotic ulcer last month at [facility] who presents from nursing facility with fall. Not oriented. H/Hct stable. Rectal with yellow stool. No further work up. Unclear regarding timing of last ETOH consumption. Diet as tolerated. Monitor H/Hct and transfuse as needed. Continue PPI daily. Will sign off.
[2018-05-09 07:55] VITALS: RESP 20
[2018-05-09] MEDS: Divalproex 125 mg EC Sprinkle Cap PO SCH (09:31)
[2018-05-09] MEDS: levETIRAcetam 500mg IVPB 500 MG/100 ML BAG IV SCH ×2 (09:36→21:46)
[2018-05-09 10:40] LABS: HEMOGLOBIN 10.4 g/dL (14.0-18.0); MEAN CELL VOLUME 87.8 fl (80.0-105.0); MEAN CORPUSCULAR HEMOGLOBIN 29.5 pg (25.0-35.0); MEAN CORPUSCULAR HGB CONC 33.5 g/dl (31.0-37.0); MEAN PLATELET VOLUME 8.7 fl (7.0-11.0); RBC 3.53 10^6/uL (3.5-6.1); RED CELL DISTRIBUTION WIDTH 17.6 % (11.5-14.5); WHITE BLOOD COUNT 3.8 10^3/ul (4.5-11.0)
[2018-05-09 10:49] LABS: IRON 29 ug/dL (45-180)
[2018-05-09 10:50] LABS: ALBUMIN 3.1 g/dL (3.0-4.8); ALT/SGPT 30 U/L (7-56); AST/SGOT 29 U/L (17-59); BLOOD UREA NITROGEN 12 mg/dL (7-21); CALCIUM 8.9 mg/dL (8.4-10.5); GFR NON-AFRICAN AMERICAN > 60
[2018-05-09 10:59] LABS: % IRON SATURATION 12 % (20-55); TOTAL IRON BINDING CAPACITY 237 ug/dL (261-462)
--- NOTE | 2018-05-09 16:23 | CP.PCM.PN ---
<Marcos Alvarez - Last Filed: 05/09/18 16:49> Subjective - Date & Time of Evaluation Date of Evaluation: 05/09/18 Time of Evaluation: 06:00 - Subjective Subjective: Pt seen and examined this morning. Pt denies SOB or chest pain. Objective - Vital Signs/Intake and Output Vital Signs (last 24 hours): Temp Pulse Resp BP Pulse Ox 98 F 107 H 20 133/75 98 05/09/18 07:54 05/09/18 12:53 05/09/18 07:54 05/09/18 12:53 05/09/18 07:54 - Medications Medications: Current Medications Albuterol/Ipratropium (Duoneb 3 Mg/0.5 Mg (3 Ml) Ud) 3 ml IH [id number] [facility] Last Admin: 05/09/18 14:23 Dose: 3 ml Albuterol/Ipratropium (Duoneb 3 Mg/0.5 Mg (3 Ml) Ud) 3 ml IH Q2H PRN PRN Reason: Shortness of Breath Diltiazem HCl (Cardizem) 30 mg PO Q6 [facility] Last Admin: 05/09/18 12:53 Dose: 30 mg Divalproex Sodium (Depakote Dr (*Bid*)) 250 mg PO BID [facility] PRN Reason: Protocol Levetiracetam (Keppra 500mg Ivpb) 500 mg in 100 mls @ 460 mls/hr IV Q12 [facility] Last Admin: 05/09/18 09:36 Dose: 460 mls/hr Lorazepam (Ativan) 1 mg IVP Q6 PRN; Protocol PRN Reason: Agitation Last Admin: 05/09/18 12:53 Dose: 1 mg Lorazepam (Ativan) 1 mg PO Q6H PRN; Protocol PRN Reason: anxiety/agitation Last Admin: 05/09/18 09:32 Dose: 1 mg Mirtazapine (Remeron) 15 mg PO HS [facility] Multivitamins/Minerals (Therapeutic-M Tab) 1 tab PO 0800 [facility] Pantoprazole Sodium (Protonix Inj) 40 mg IVP Q12 [facility] Last Admin: 05/09/18 09:32 Dose: 40 mg Risperidone (Risperdal Oral Soln) 1 mg PO BID [facility] PRN Reason: Protocol - Labs Labs: 05/09/18 10:00 05/09/18 10:00 - Constitutional Appears: No Acute Distress - Head Exam Head Exam: ATRAUMATIC, NORMOCEPHALIC - ENT Exam ENT Exam: Mucous Membranes Moist - Respiratory Exam Respiratory Exam: Clear to Ausculation Bilateral, NORMAL BREATHING PATTERN. absent: Wheezes - Cardiovascular Exam Cardiovascular Exam: RRR, +S1, +S2 - GI/Abdominal Exam GI & Abdominal Exam: Soft, Normal Bowel Sounds - Neurological Exam Neurological Exam: Alert, Awake, Oriented x3 - Skin Skin Exam: Dry, Intact, Warm Assessment and Plan - Assessment and Plan (Free Text) Assessment: Pt is a 52 yo male with PMH of HTN, COPD, hiatal hernia, PUD, alcohol abuse, seizures, depression who presented to the ED from [facility] for violent behavior and s/p fall. Due to previous history of cardiac arrest and falls, patient was admitted for acute anemia and agitation. Plan: Anemia - Hgb is 10.4 - Transfused x1 unit pRBC yesterday, refused second unit transfusion - Iron studies: Iron 29, TIBC 237, %Sat 12, ferritin 279 - vit B12: pending - folate: pending Recurrent Falls - CT Head: no acute intracranial hemorrhage. - Fall precautions Agitation - Ativan 1 mg IVP prn - Psych consulted HTN - diltiazem, 30mg PO q6 Seizures - Keppra 500 mg q 12 - depakote 250mg BID - Monitor for seizures - neurology: appreciate recs - seizure precautions COPD - duonebs q4h - O2 NC prn Ppx - Protonix 40 mg IVP q12 - SCDs Pt seen, examined, assessment and plan discussed with Dr Cailin Alvarez PGY1 <Max Simeon - Last Filed: 05/10/18 16:25> Objective - Vital Signs/Intake and Output Vital Signs (last 24 hours): Temp Pulse Resp BP Pulse Ox 98.3 F 108 H 20 146/96 H 99 05/10/18 08:55 05/10/18 12:15 05/10/18 08:55 05/10/18 12:15 05/10/18 08:55 - Medications Medications: Current Medications Albuterol/Ipratropium (Duoneb 3 Mg/0.5 Mg (3 Ml) Ud) 3 ml IH [id number] [facility] Last Admin: 05/10/18 13:45 Dose: 3 ml Albuterol/Ipratropium (Duoneb 3 Mg/0.5 Mg (3 Ml) Ud) 3 ml IH Q2H PRN PRN Reason: Shortness of Breath Diltiazem HCl (Cardizem) 30 mg PO Q6 [facility] Last Admin: 05/10/18 12:15 Dose: 30 mg Divalproex Sodium (Depakote Dr (*Bid*)) 250 mg PO BID [facility] PRN Reason: Protocol Last Admin: 05/10/18 12:20 Dose: 250 mg Levetiracetam (Keppra 500mg Ivpb) 500 mg in 100 mls @ 460 mls/hr IV Q12 [facility] Last Admin: 05/10/18 12:13 Dose: 460 mls/hr Lorazepam (Ativan) 1 mg IVP Q6 PRN; Protocol PRN Reason: Agitation Last Admin: 05/09/18 12:53 Dose: 1 mg Lorazepam (Ativan) 1 mg PO Q6H PRN; Protocol PRN Reason: anxiety/agitation Last Admin: 05/10/18 12:42 Dose: 1 mg Mirtazapine (Remeron) 15 mg PO HS [facility] Last Admin: 05/09/18 21:45 Dose: 15 mg Multivitamins/Minerals (Therapeutic-M Tab) 1 tab PO 0800 [facility] Last Admin: 05/10/18 08:56 Dose: 1 tab Pantoprazole Sodium (Protonix Inj) 40 mg IVP Q12 [facility] Last Admin: 05/10/18 12:14 Dose: 40 mg Risperidone (Risperdal Oral Soln) 1 mg PO BID [facility] PRN Reason: Protocol Last Admin: 05/10/18 14:03 Dose: 1 mg - Labs Labs: 05/10/18 07:30 05/10/18 07:30 Attending/Attestation - Attestation I have personally seen and examined this patient.: Yes I have fully participated in the care of the patient.: Yes I have reviewed all pertinent clinical information, including history, physical exam and plan: Yes Notes (Text): 05/10/18 16:25 Medical record note made by the resident after discussion with my direction and input after the patient was personally seen and examined by me. I have reviewed the chart and agree that the record accurately reflects by personal performance of the history, physical exam, data review, and medical decision-making, in the course for the patient. I have also personally directed the plan of care.
--- NOTE | 2018-05-09 16:25 | PN ---
DATE: 05/09/2018 SUBJECTIVE: The patient was sent from the correction for evaluation of aggressive and agitated behavior, for psychiatric admission, but the patient was found to have anemia, which is stabilized. This residential mortgage underwriter evaluated the patient yesterday. Risperdal as well as Depakote was started yesterday. The patient was followed up today. The patient presented irritable and angry, screaming out of his lines that he wants to eat. The patient is verbally abusive towards staff and this residential mortgage underwriter. The patient was seen, but there is some improvement with the patient's presentation. The patient was able to concentrate for longer periods of time, the patient was trying to listen what this residential mortgage underwriter said, but overall in regards of agitation, no improvement. The patient does not want to go to the Psychiatric Inpatient Unit. VITAL SIGNS: Reviewed. Temperature 98, pulse is 104, blood pressure 134/78, respirations 20, oxygen saturation is 98. MEDICATIONS: Reviewed. The patient is on DuoNeb, Cardizem, Depakote 250 mg twice a day. The patient is on Keppra, Ativan as needed. The patient also is going to be on mirtazapine as well as Risperdal 1 mg twice a day. LABORATORY DATA: Reviewed. WBC cells is 3.8. Chemistry reviewed. Toxicology reviewed. MENTAL STATUS EXAMINATION: As this residential mortgage underwriter described above, the patient is yelling, screaming, was able to sustain his attention for couple of minutes. Mood described "what do you mean." Thought process seems to be disorganized and the patient is yelling. Thought content, the patient denied visual, auditory, or tactile hallucinations. The patient was sarcastic. The patient denied thoughts of harming himself or others. Insight and judgment seem to be limited but improving. Impulses are unpredictable. IMPRESSION: Mood spectrum disorder, rule out mood disorder due to general medical condition, rule out impulse control disorder, rule out frontotemporal organic causes of the patient's presentation. PLAN: Risperdal was increased. Depakote was increased, Remeron at the nighttime for insomnia. Discussed with Dr. Simeon. The patient does not want to sign himself into the Psychiatric Inpatient Unit. Meanwhile, continue current management. We will follow up and advise accordingly. Thank you very much for letting me to participate in the care of your patient. Sofy Peoples MD
[2018-05-09] MEDS: Divalproex 250 mg DR (BID formulation) PO SCH (17:26)
[2018-05-09 17:28] LABS: FOLATE > 20.0 ng/mL
[2018-05-10] MEDS: Albuterol-Ipratrop 3 mg / 0.5 (3 ml) UD IH SCH ×4 (02:40→19:24)
[2018-05-10 08:12] LABS: HEMOGLOBIN 10.1 g/dL (14.0-18.0); MEAN CELL VOLUME 87.2 fl (80.0-105.0); MEAN CORPUSCULAR HEMOGLOBIN 29.4 pg (25.0-35.0); MEAN CORPUSCULAR HGB CONC 33.8 g/dl (31.0-37.0); MEAN PLATELET VOLUME 8.8 fl (7.0-11.0); RBC 3.43 10^6/uL (3.5-6.1); RED CELL DISTRIBUTION WIDTH 17.4 % (11.5-14.5); WHITE BLOOD COUNT 3.9 10^3/ul (4.5-11.0)
[2018-05-10 08:34] LABS: ALBUMIN 3.1 g/dL (3.0-4.8); ALT/SGPT 21 U/L (7-56); AST/SGOT 33 U/L (17-59); BLOOD UREA NITROGEN 16 mg/dL (7-21); CALCIUM 8.8 mg/dL (8.4-10.5); GFR NON-AFRICAN AMERICAN > 60
[2018-05-10 08:55] VITALS: O2SAT 99
[2018-05-10] MEDS: Multivitamin With Minerals Tab PO SCH (08:56)
--- NOTE | 2018-05-10 10:13 | PN ---
DATE: 05/10/2018 FOLLOWUP NOTE SUBJECTIVE: Shortly, the patient is a 52-year-old male with multiple medical issues, was transferred from the [facility] for aggressive and abusive behavior. This board writer was following the patient up on the medical site for evaluation of mood and medication management. This board writer increased the dose of Depakote as well as Risperdal. The patient responded to that plan well. The patient was seen today. The patient is less aggressive, was able to hold interview, but the patient has episodes of irritability and using foul language. Other than that, the patient was observed eating with good appetite. No physical aggression. The patient is compliant with the medications. Labs stable. Vital signs are stable. MENTAL STATUS EXAMINATION: The patient presented to be alert and oriented, somewhat better to compare with the time of admission when the patient was screaming, yelling, also cursing at this board writer. Today, the patient was able to hold conversation. Intermittent eye contact. Speech was overproductive and loud, but better to compare with the time of admission. The patient described his mood as fine. Affect was constricted and angry. Thought process was concrete. Thought content, the patient denied visual, auditory or tactile hallucinations. Denied paranoid ideation. The patient denied thoughts of harming himself or others. Denied intents or plan. Insight and judgment seems to be limited, but improving. Impulses are better controlled. IMPRESSION: Rule out impulse control disorder, rule out mood disorder due to general medical condition. PLAN: This board writer would suggest to continue Depakote as well as Risperdal if it is possible to wean the patient off Keppra because it could be given hostility and irritability. Meanwhile, the patient does not want to stay into the psychiatric inpatient unit. The patient does not meet the criteria for screening by [facility] ([facility] This board writer will sign off. The patient pose no imminent danger to self or others. Should you have any questions, give me a call back. Sofy Peoples MD
[2018-05-10] MEDS: levETIRAcetam 500mg IVPB 500 MG/100 ML BAG IV SCH ×2 (12:13→21:48)
[2018-05-10] MEDS: Divalproex 250 mg DR (BID formulation) PO SCH ×2 (12:20→17:40)
--- NOTE | 2018-05-10 13:15 | RAD ---
Date of service: 05/10/2018 HISTORY: r/o pneumonia COMPARISON: No prior. FINDINGS: LUNGS: No infiltrate. Vaguely nodular opacity overlying anterior end of left 5th rib at left lung base. Possible nipple shadow. Recommend repeat PA chest radiograph with radiopaque nipple markers when clinically feasible. PLEURA: No significant pleural effusion identified, no pneumothorax apparent. CARDIOVASCULAR: Normal. OSSEOUS STRUCTURES: No significant abnormalities. VISUALIZED UPPER ABDOMEN: Normal. OTHER FINDINGS: None. IMPRESSION: Questionable nodule at left base. Recommend repeat PA chest radiograph with nipple markers. Otherwise unremarkable.
[2018-05-10 13:37] LABS: TROPONIN I 0.01 ng/mL
--- NOTE | 2018-05-10 13:58 | CARD ---
APPROVED REPORT Date of service: 05/10/2018 EKG Measurement Heart [id number] <Conclusion> Sinus tachycardia Minimal voltage criteria for LVH, may be normal variant Borderline ECG
[2018-05-10] MEDS ORDERED: Magnesium Sulfate 1 gm in D5W 1 GM/100 ML BAG IVPB ONE (14:01)
--- NOTE | 2018-05-10 14:18 | CP.PCM.PN ---
<Marcos Alvarez - Last Filed: 05/10/18 14:28> Subjective - Date & Time of Evaluation Date of Evaluation: 05/10/18 Time of Evaluation: 07:00 - Subjective Subjective: Pt seen and examined. No new complaints at this time. Objective - Vital Signs/Intake and Output Vital Signs (last 24 hours): Temp Pulse Resp BP Pulse Ox 98.3 F 108 H 20 146/96 H 99 05/10/18 08:55 05/10/18 12:15 05/10/18 08:55 05/10/18 12:15 05/10/18 08:55 - Medications Medications: Current Medications Albuterol/Ipratropium (Duoneb 3 Mg/0.5 Mg (3 Ml) Ud) 3 ml IH [id number] [facility] Last Admin: 05/10/18 13:45 Dose: 3 ml Albuterol/Ipratropium (Duoneb 3 Mg/0.5 Mg (3 Ml) Ud) 3 ml IH Q2H PRN PRN Reason: Shortness of Breath Diltiazem HCl (Cardizem) 30 mg PO Q6 [facility] Last Admin: 05/10/18 12:15 Dose: 30 mg Divalproex Sodium (Depakote Dr (*Bid*)) 250 mg PO BID [facility] PRN Reason: Protocol Last Admin: 05/10/18 12:20 Dose: 250 mg Levetiracetam (Keppra 500mg Ivpb) 500 mg in 100 mls @ 460 mls/hr IV Q12 [facility] Last Admin: 05/10/18 12:13 Dose: 460 mls/hr Magnesium Sulfate/Dextrose (Magnesium Sulfate 1 Gm/100 Ml D5w) 1 gm in 100 mls @ 100 mls/hr IVPB ONCE ONE Stop: 05/10/18 15:00 Lorazepam (Ativan) 1 mg IVP Q6 PRN; Protocol PRN Reason: Agitation Last Admin: 05/09/18 12:53 Dose: 1 mg Lorazepam (Ativan) 1 mg PO Q6H PRN; Protocol PRN Reason: anxiety/agitation Last Admin: 05/10/18 12:42 Dose: 1 mg Mirtazapine (Remeron) 15 mg PO HS [facility] Last Admin: 05/09/18 21:45 Dose: 15 mg Multivitamins/Minerals (Therapeutic-M Tab) 1 tab PO 0800 [facility] Last Admin: 05/10/18 08:56 Dose: 1 tab Pantoprazole Sodium (Protonix Inj) 40 mg IVP Q12 [facility] Last Admin: 05/10/18 12:14 Dose: 40 mg Risperidone (Risperdal Oral Soln) 1 mg PO BID [facility] PRN Reason: Protocol Last Admin: 05/10/18 14:03 Dose: 1 mg - Labs Labs: 05/10/18 07:30 05/10/18 07:30 - Head Exam Head Exam: ATRAUMATIC, NORMOCEPHALIC - ENT Exam ENT Exam: Mucous Membranes Moist - Respiratory Exam Respiratory Exam: Wheezes, NORMAL BREATHING PATTERN. absent: Accessory Muscle Use - Cardiovascular Exam Cardiovascular Exam: RRR, +S1, +S2 - GI/Abdominal Exam GI & Abdominal Exam: Soft, Normal Bowel Sounds - Extremities Exam Extremities Exam: Full ROM - Neurological Exam Neurological Exam: Alert, Awake, Oriented x3 - Skin Skin Exam: Dry, Warm Assessment and Plan - Assessment and Plan (Free Text) Assessment: Pt is a 52 yo male with PMH of HTN, COPD, hiatal hernia, peptic ulcer disease, alcohol abuse, seizures, depression who presented to the ED from senior living for violent behavior and s/p fall. Due to previous history of cardiac arrest and falls, patient was admitted for acute anemia and agitation. Plan: Anemia - Hgb 10.1 - Iron studies: Iron 29, TIBC 237, %Sat 12, ferritin 279 - vit B12: 609, folate: >20 Recurrent Falls - Fall precautions - CT Head: no acute intracranial hemorrhage. Seizures - depakote 250mg BID - Keppra 500 mg q 12 - neurology: appreciate recs - seizure precautions Agitation - Ativan 1 mg q6 IVP prn - Psych: Remeron 15mg HS, Risperdone 1mg PO BID, signing off Pulmonary congestion on exam -CXR: questionable nodule at left base. Recommend repeat PA chest radiograph with nipple markers HTN - diltiazem, 30mg PO q6 COPD - duonebs q4h - O2 NC prn Ppx - Protonix 40 mg IVP q12 - SCDs Dispo: [facility] Friday Pt seen, examined, assessment and plan discussed with Dr Cailin Alvarez PGY1 Internal Medicine Resident <Max Simeon - Last Filed: 05/10/18 16:22> Objective - Vital Signs/Intake and Output Vital Signs (last 24 hours): Temp Pulse Resp BP Pulse Ox 98.3 F 108 H 20 146/96 H 99 05/10/18 08:55 05/10/18 12:15 05/10/18 08:55 05/10/18 12:15 05/10/18 08:55 - Medications Medications: Current Medications Albuterol/Ipratropium (Duoneb 3 Mg/0.5 Mg (3 Ml) Ud) 3 ml IH [id number] [facility] Last Admin: 05/10/18 13:45 Dose: 3 ml Albuterol/Ipratropium (Duoneb 3 Mg/0.5 Mg (3 Ml) Ud) 3 ml IH Q2H PRN PRN Reason: Shortness of Breath Diltiazem HCl (Cardizem) 30 mg PO Q6 [facility] Last Admin: 05/10/18 12:15 Dose: 30 mg Divalproex Sodium (Depakote Dr (*Bid*)) 250 mg PO BID [facility] PRN Reason: Protocol Last Admin: 05/10/18 12:20 Dose: 250 mg Levetiracetam (Keppra 500mg Ivpb) 500 mg in 100 mls @ 460 mls/hr IV Q12 [facility] Last Admin: 05/10/18 12:13 Dose: 460 mls/hr Lorazepam (Ativan) 1 mg IVP Q6 PRN; Protocol PRN Reason: Agitation Last Admin: 05/09/18 12:53 Dose: 1 mg Lorazepam (Ativan) 1 mg PO Q6H PRN; Protocol PRN Reason: anxiety/agitation Last Admin: 05/10/18 12:42 Dose: 1 mg Mirtazapine (Remeron) 15 mg PO HS [facility] Last Admin: 05/09/18 21:45 Dose: 15 mg Multivitamins/Minerals (Therapeutic-M Tab) 1 tab PO 0800 [facility] Last Admin: 05/10/18 08:56 Dose: 1 tab Pantoprazole Sodium (Protonix Inj) 40 mg IVP Q12 [facility] Last Admin: 05/10/18 12:14 Dose: 40 mg Risperidone (Risperdal Oral Soln) 1 mg PO BID [facility] PRN Reason: Protocol Last Admin: 05/10/18 14:03 Dose: 1 mg - Labs Labs: 05/10/18 07:30 05/10/18 07:30 Attending/Attestation - Attestation I have personally seen and examined this patient.: Yes I have fully participated in the care of the patient.: Yes I have reviewed all pertinent clinical information, including history, physical exam and plan: Yes Notes (Text): 05/10/18 16:19 Medical record note made by the resident after discussion with my direction and input after the patient was personally seen and examined by me. I have reviewed the chart and agree that the record accurately reflects by personal performance of the history, physical exam, data review, and medical decision-making, in the course for the patient. I have also personally directed the plan of care. 52 year old male with PMH of ETOH abuse with withdrawal seizures, SP Cardiac arrest 04/03, PUD s/p bilroth, COPD, recent upper GI bleeding s/p EGD with treatment of bleeding anastomotic ulcer last month at [facility] (EGD last month showed anastomotic ulceration with visible vessel s/p clip placement )who presents from nursing facility with fall and agitation. Hemoglobin was 7.2, Patient SP one unit of PRBC.Hemoglobin is 10.1 today. Patient is tolerating diet.He has been exhibiting violent behavior intermittently.Psychiatry is following. Patient had episode of atypical chest pain as he was stressed out after family visit.EKG is negative for ischemic changes, we will monitor troponin.Patient is currently pain free. 05/10/18 16:20
[2018-05-11] MEDS: Albuterol-Ipratrop 3 mg / 0.5 (3 ml) UD IH SCH ×3 (01:38→14:46)
[2018-05-11 07:05] VITALS: BP 131/81; PULSE 114
[2018-05-11 07:37] VITALS: TEMP 98.1
--- NOTE | 2018-05-11 09:23 | CON ---
DATE: 05/08/2018 HISTORY OF PRESENT ILLNESS: Shortly, the patient is a 52-year-old male with history of hypertension. The patient has no not-known previous psychiatric history. The patient was sent from [facility] for evaluation of abusive and violent behavior. The patient has history of falling, but the past three days, the patient fell three times and hurt his right hand and both knees. The patient was admitted on the medical side for further evaluation and stabilization. The patient has multiple medical issues including cardiac arrest, severe hypernatremia. The patient was treated at [facility] and was discharged from there on 05/02. Since that time, the patient had subacute rehab in the [facility]. This short story writer attempted to speak to the patient. The patient is disruptive, disrespectful, cursing at this short story writer using profanities, disinhibited, no possible to have interviewed. The patient was alternating agitation and profanity words, falling asleep. The patient was screaming "get out of here, get out of here." This short story writer reviewed medication list. Abilify will be discontinued, the cause is could be of irritability and anxiety. This short story writer would initiate Risperdal liquid 0.5 mg twice a day to help with mood as well as agitation. The patient also is on Keppra, but Keppra also could give irritability, hostility and aggressive outbursts, would suggest to add Depakote 125 mg twice a day, Depakote Sprinkles started. Medications reviewed. The patient's WBC cells 3.8, hemoglobin and hematocrit 9.5 and 28.4. Blood gas reviewed. Chemistry reviewed. Toxicology reviewed. Benzodiazepines were positive, but no signs of patient taking [facility] at the [facility]. The patient also was on Ativan back in the [facility]. We will restart it with 1 mg every 6 hours as needed for anxiety and agitation. MENTAL STATUS EXAMINATION: As this short story writer described above, no option to have meaningful conversation, patient was disinhibited, screaming, yelling, cursing, verbalizing threats to others. Insight and judgement seems to be impaired. The impulses are unpredictable. IMPRESSION: This short story writer would like to rule out frontotemporal organic causes of this patient's presentation. This short story writer is not sure what is the patient's baseline, rule out mood disorder, rule out delirium. PLAN: Depakote started, Risperdal started. Ativan was continued. This short story writer discussed the case with Dr. Simeon, suggested Neurology consultation to rule out frontotemporal dementia . The patient does not want to sign himself into the Psychiatric Inpatient Unit. We will follow up and advise accordingly. Thank you very much for letting me participate in the care of your patient. Sofy Peoples MD
[2018-05-11 09:24] LABS: HEMOGLOBIN 10.9 g/dL (14.0-18.0); MEAN CELL VOLUME 88.7 fl (80.0-105.0); MEAN CORPUSCULAR HEMOGLOBIN 29.4 pg (25.0-35.0); MEAN CORPUSCULAR HGB CONC 33.1 g/dl (31.0-37.0); MEAN PLATELET VOLUME 9.1 fl (7.0-11.0); RBC 3.71 10^6/uL (3.5-6.1); RED CELL DISTRIBUTION WIDTH 17.6 % (11.5-14.5); WHITE BLOOD COUNT 4.6 10^3/ul (4.5-11.0)
[2018-05-11 09:40] LABS: BLOOD UREA NITROGEN 16 mg/dL (7-21); CALCIUM 9.2 mg/dL (8.4-10.5); GFR NON-AFRICAN AMERICAN > 60
[2018-05-11] MEDS: Divalproex 250 mg DR (BID formulation) PO SCH (09:40)
[2018-05-11] MEDS: levETIRAcetam 500mg IVPB 500 MG/100 ML BAG IV SCH (09:41)
[2018-05-11] MEDS: Multivitamin With Minerals Tab PO SCH (09:42)
[2018-05-11 09:46] LABS: TROPONIN I 0.02 ng/mL
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
== END 2018-05-11 15:18 | DRG 395 ==
LOC: ED 12:51 → ERH 17:24 → 3RNO 21:11 → OBSVTOIN 05-09 07:09
PROVIDERS: ADMIT Internal Medicine; ATTEND Internal Medicine
PROC: 30233N1 Transfusion of Nonautologous Red Blood Cells into Peripheral Vein, Percutaneous Approach (ICD-10-PCS; principal; 2018-05-07)
DX: D64.9 Anemia, unspecified (principal); J44.9 Chronic obstructive pulmonary disease, unspecified; R56.9 Unspecified convulsions; E44.0 Moderate protein-calorie malnutrition; F39 Unspecified mood [affective] disorder; I10 Essential (primary) hypertension; F10.10 Alcohol abuse, uncomplicated; F32.9 Major depressive disorder, single episode, unspecified; K27.9 Peptic ulcer, site unspecified, unspecified as acute or chronic, without hemorrhage or perforation; H91.90 Unspecified hearing loss, unspecified ear; M41.9 Scoliosis, unspecified; R45.1 Restlessness and agitation; Z68.25 Body mass index [BMI] 25.0-25.9, adult; Z87.891 Personal history of nicotine dependence; Z86.74 Personal history of sudden cardiac arrest; Z91.81 History of falling